=== PATIENT | male | born 1960 | race Caucasian/White ===

== ENCOUNTER → 2021-07-22 | Outpatient (CLI) | payer OTHER ==
[2021-07-22] VITALS (8 sets, daily range): BP systolic 108–138; BP diastolic 58–77
[~2021-07-22] VITALS: Ht 177.8 cm; Wt 143.2 kg
[~2021-07-22] MED LIST: ACYCLOVIR 800800 MG PO; AUGMENTIN 875875 M1 PO; CIPRO250 M1 PO; DIABETA 5MG TABL5 MG PO; DOXYCYCLINE 10100 MG PO; FLAGYL500 MG PO; FLEXERIL PO; GERD MED; HTN MED; HUMULINU500 SUBQ; HYDROCODON-ACE1 EAC5 PO; HYDROCODON-ACE1 EAC7 PO; JANUVIA100 MG PO; LANTUS INJECTION; LANTUS SUBQ; LIPITOR20 MG PO; LISINOPRIL-HCT1 EAC1 PO; LISINOPRIL-HCT1 EACH PO; LISINOPRIL40 MG PO; LORTAB 5-500 T1 EAC1 PO; METFORMIN HCL1000 M1 PO; NAPROXEN DELAY500 M1; OMEPRAZOLE40 MG PO; PHENTERMINE H37.5 MG PO; PREDNISONE 20 M20 M1 PO; PRINIVIL20 MG PO; PROTONIX40 M2 PO; ROBAXIN 750 MG750 MG PO; TOPROL XL50 MG PO
[2021-07-22 08:34] LABS: HEMOGLOBIN 14.6 gm/dL (14.0-18.0); MCH 30.5 pg (26.0-34.0); MCV 89.5 fL (80.0-100.0); MPV 7.6 fl. (7.2-11.1); RBC 4.8 mil/uL (4.50-6.00); RDW-CV 13.4 % (10.5-14.5); WBC 7.2 thou/uL (4.0-11.0)
[2021-07-22 08:45] LABS: ANION GAP 9 mmol/L (7-16); BUN 19 mg/dL (7-18); CALCIUM 9.6 mg/dL (8.5-10.1); CHLORIDE 101 mmol/L (98-107); CO2 26 mmol/L (21-32); GLUCOSE 167 mg/dL (70-99); POTASSIUM 4.9 mmol/L (3.5-5.1); SODIUM 136 mmol/L (136-145)
[2021-07-22 08:48] LABS: APTT 28.5 Seconds (25.0-31.3); INR 1.1; PROTIME 11.9 Seconds (9.20-11.50)
[2021-07-22 08:50] LABS: ALBUMIN 3.9 g/dL (3.4-5.0); ALKALINE PHOSPHATASE 97 U/L (46-116); CHOLESTEROL 262 mg/dL (<200); HDL CHOLESTEROL 27 mg/dL (>40); LDL CHOLESTEROL 168 mg/dL (<100); SERUM ASSESSMENT Clear; SGOT 53 U/L (15-37); SGPT 93 U/L (30-65); TC:HDL 9.7 Ratio (Not establshd); TOTAL BILIRUBIN 0.5 mg/dL (<0.1-1.0); TOTAL PROTEIN 7.9 g/dL (6.4-8.2); TRIGLYCERIDE 337 mg/dL (<150); VLDL 67 mg/dL (<40)
--- NOTE | 2021-07-22 09:28 | EKG ---
[place] [address] ELECTROCARDIOGRAM REPORT Name: ARIELLE LEDESMA Room: [facility]#: [id number] Admission: 07/22/21 Attend Phys: William Barrientos MD Discharge: Date of : 62 Date of Service: 07/22/21 0837 Report #: [id number] THIS REPORT FOR: //name// [facility] Test Date: 2021-07-22 Test Time: 08:37:41 Pat Name: ARIELLE LEDESMA Department: Room: Gender: M Text Transcriber: : 1960 Requested By: William Barrientos Order Number: [id number] Reading MD: William Barrientos Measurements Intervals [place] Rate: 89 P: 63 NV: 153 QRS: 51 QRSD: 96 T: 65 QT: 340 QTc: 414 Interpretive Statements Sinus rhythm Abnormal R-wave progression, early transition Borderline T wave abnormalities Compared to ECG 03/27/2013 12:04:24 Sinus tachycardia no longer present Electronically Signed On 07-22-2021 9:27:58 CDT by William Barrientos [email or web address] <ELECTRONICALLY SIGNED> By: William Barrientos MD, FACC 07/22/21 0927 William Barrientos MD, [facility] /EPI
--- NOTE | 2021-07-22 14:30 | CARD ---
[address] [address] CARDIAC CATH REPORT Name: ROHITMILENAARIELLE ANN Room: [facility] DEREK SandovalJudith#: [id number] Admission: 07/22/21 Attend Phys: William Barrientos MD, F Discharge: Date of : 62 Report #: [id number] THIS REPORT FOR: cc: Bill Glaser MD, Matthew W. MD Blick, David R. MD [facility] ~ APPROVED REPORT Study performed: 07/22/2021 07:55:36 Patient Details Patient Status: Out-Patient Room #: The patient is a 61 year-old male Event Personnel Dr Barrientos - Operational Meteorologist, Aiyana Agustin - KELSY, Omaira Grayson RN, [facility] - monitor Procedures Performed [facility] Indication Atypical chest pain , Positive stress test Risk Factors Hypercholesterolemia, Hypertension, Diabetes Admission/Lab Medications/Medications given during procedure Heparin Unfract. Procedure Narrative The patient was brought electively to the Cardiac Catheterization Laboratory and was prepped and draped in a sterile manner. The right wrist was infiltrated with 1% Lidocaine subcutaneous anesthesia. A Slender sheath was inserted into the right radial artery. Coronary angiography was performed using coronary diagnostic catheters. The right coronary system was accessed and visualized with a JR4 catheter. The left coronary system was accessed and visualized with a AL1 catheter. The left ventricle was accessed and visualized with a Diagnostic catheter. Left ventricular/Aortic Valve gradient assessed via catheter pullback. Closure device was deployed with a 6 Fr vascband. The patient tolerated the procedure well and there were no complications associated with the procedure. There was no hematoma. Unable to cannulate left main artery with neither JL4, nor JL3.5, [place] [address] CARDIAC CATH REPORT Name: ARIELLE LEDESMA Room: [facility]#: [id number] Admission: 07/22/21 Attend Phys: William Barrientos MD, F Discharge: Date of : 62 Report #: [id number] Jenna catheter becuase of tortuous aorta. Intraoperative Conscious Sedation Sedation start time: 938 Case end Time: 1024 Fentanyl 50.0 mcg Versed 4.0 mg Fluoro Time: 15.0 minutes Dose: DAP [id number] [id number] Coronary Angiography The patient's coronary anatomy is left dominant. Diagnostic Cath Left Main 0% stenosis LAD 30% proximal stenosis Circumflex 30% proximal and 60% distal stenosis OM1 60% mid stenosis Right Coronary 0% stenosis Left Ventriculography The left ventricle is normal in size with normal contractility. The left ventricular ejection fraction is estimated to be 60-65%. Left ventricular wall motion abnormalities are not present. There is no mitral insufficiency. Hemodynamics The aortic pressure is 110/67 mmHg with a mean of 79 mmHg. The left ventricular pressure is 143/3 mmHg with a mean of 17 mmHg. The left ventricular end diastolic pressure is 15 mmHg. Conclusion 1. Mild CAD with a 60% stenosis of the distal circumflex and first marginal branch. 2. LVEF 60-65% Recommendations Aggressive Medical Therapy <ELECTRONICALLY SIGNED> By: William Barrientos MD, [facility] 07/22/21 143 1430 1430Dakolby Barrientos MD, FACC /INF
== END | disposition home or self-care (01) ==
LOC: M.CL 07:31
PROVIDERS: ATTEND Internal Medicine Cardiovascular Disease
DX: R07.89 Other chest pain (principal); R94.39 Abnormal result of other cardiovascular function study; I25.10 Atherosclerotic heart disease of native coronary artery without angina pectoris; I10 Essential (primary) hypertension; E78.00 Pure hypercholesterolemia, unspecified; E11.9 Type 2 diabetes mellitus without complications; K21.9 Gastro-esophageal reflux disease without esophagitis; Z98.890 Other specified postprocedural states; Z79.899 Other long term (current) drug therapy; Z79.4 Long term (current) use of insulin